=== PATIENT | female | born 1995 | race Caucasian/White ===

== ENCOUNTER 2020-09-16 10:52 | Emergency (ER) | payer MEDICAID, OTHER ==
[~2020-09-16] VITALS: Ht 165.1 cm; Wt 79.0 kg
[2020-09-16 10:59] VITALS: BP 124/72
--- NOTE | 2020-09-16 11:08 | NUR ---
PT AMBULATED TO BED 8 WITH STEADY GAIT
--- NOTE | 2020-09-16 11:20 | NUR ---
Patient being evaluated by Dr. Walsh at bedside.
--- NOTE | 2020-09-16 11:31 | NUR ---
25 Y/O FEMALE C/O MID BACK PAIN ON & OFF X 1 YEAR. PT STATED SHE WAS MOVING LAST YEAR AND MOVING BOXES WHEN THE PAIN STARTED. PT WENT ON DISABILITY AND WENT TO PT. PT HAD 2 MRI AND SAID IT WAS A NONCANCEROUS BLOOD VESSEL. PT DENIES RECENT TRAUMA. PT RATES PAIN 8/10 THAT IS BURNING AND THROBBING AND RADIATES DOWN TO BOTH LEGS. PT TOOK TYLENOL WITH NO RELIEF. PT DENIES N/V/SOB. PT IS A/O X4 WITH EVEN AND UNLABORED RESPIRATIONS. PMH: DENIES NKA
[2020-09-16] MEDS ORDERED: NAPR-54 PO (11:36)
[2020-09-16 11:47] VITALS: BP 124/72
== END 2020-09-16 11:47 | disposition home or self-care (01) ==
LOC: MED 10:52
DX: G89.29 Other chronic pain (principal); M54.9 Dorsalgia, unspecified; F12.90 Cannabis use, unspecified, uncomplicated; Z79.899 Other long term (current) drug therapy; Z88.0 Allergy status to penicillin
CPT/HCPCS: 99283

== ENCOUNTER 2021-10-10 22:21 | Emergency (ER) | payer MEDICAID, OTHER ==
[~2021-10-10] VITALS: Ht 162.6 cm; Wt 80.7 kg
[~2021-10-10 22:21] MED LIST: NAPR-54 PO
[2021-10-10 22:40] VITALS: BP 120/85
--- NOTE | 2021-10-10 22:43 | NUR ---
to lobby a/w bed ambulatory
--- NOTE | 2021-10-10 23:16 | NUR ---
PT TAKEN TO XR VIA W/C
--- NOTE | 2021-10-10 23:40 | NUR ---
seen and examined by HAYDEE
[2021-10-10] MEDS ORDERED: KETOROLAC 30 MG/ML VIAL IM ONE (23:45)
[2021-10-10] MEDS ORDERED: ACETAMINOPHEN EXTRA STRENGTH 500 MG TAB ONE (23:56)
[2021-10-10] MEDS ORDERED: NAPR-54 PO (23:56)
[2021-10-10] MEDS ORDERED: ACET-8386 PO (23:57)
--- NOTE | 2021-10-11 | NUR ---
patient refused im medication ERMD noted, TYLENOL 1gram PO was given, tolerated well.
--- NOTE | 2021-10-11 00:22 | NUR ---
Lina jones in [facility] - 10/11/21 at 0051 by MEDMYA DHARA RN AT BEDSIDE.
[2021-10-11 00:28] VITALS: BP 116/78
--- NOTE | 2021-10-11 00:28 | NUR ---
Patient discharged with v/s stable. Written and verbal after care instructions given and explained. Patient alert, oriented and verbalized understanding of instructions. Ambulatory with by parent. All questions addressed prior to discharge. ID band removed. Patient advised to follow up with PMD. Rx of naprosyn, hydrocodone given. Patient educated on indication of medication including possible reaction and side effects. Opportunity to ask questions provided and answered.
== END 2021-10-11 00:28 | disposition home or self-care (01) ==
LOC: MED 22:21
DX: S92.351A Displaced fracture of fifth metatarsal bone, right foot, initial encounter for closed fracture (principal); Z88.0 Allergy status to penicillin; Z79.899 Other long term (current) drug therapy; W22.8XXA Striking against or struck by other objects, initial encounter; Y93.89 Activity, other specified; Y92.89 Other specified places as the place of occurrence of the external cause; Y99.8 Other external cause status
CPT/HCPCS: 29515; 73630; 99283; J1885